=== PATIENT | female | born 1945 | race Caucasian/White ===

== ENCOUNTER 2017-06-22 11:29 | Observation (INO) | payer MEDICARE ==
[~2017-06-22] VITALS: Ht 165.1 cm; Wt 63.5 kg
--- NOTE | 2017-06-22 12:59 | Diagnostic Imaging Report ---
PROCEDURE:X-RAY CHEST, ONE VIEW COMPARISON:None. INDICATIONS:DIZZY, HEART FAILURE, SHORT OF BREATH FINDINGS: There are no consolidations, pleural effusions or pneumothorax. The cardiomediastinal silhouette and pulmonary vasculature are normal. There is a tortuous and calcified thoracic aorta. There are no acute osseous abnormalities. CONCLUSION: No acute cardiopulmonary abnormality. Evangelist Lew D.O. Dictated by: Evangelist Lew D.O. on 06/22/2017 at 12:59 Electronically approved by: Evangelist Lew D.O. on 06/22/2017 at 12:59
[2017-06-22 15:31] LABS: BASOPHILS % 0.4 % (0.0-1.0); EOSINOPHILS # (AUTO) 0.2 (0.0-0.4); HEMATOCRIT 34.9 % (34.2-44.1); HEMOGLOBIN 11.5 g/dL (12.0-16.0); LYMPHOCYTES # (AUTO) 2.6 (1.0-3.2); LYMPHOCYTES % 24.2 % (18.0-39.1); MEAN CORPUSCULAR HEMOGLOBIN 29.7 pg (28-32); MEAN CORPUSCULAR VOLUME 90.2 fL (81-99); MONOCYTES # (AUTO) 0.7 (0.2-0.8); MONOCYTES % 6.8 % (4.4-11.3); NEUTROPHILS # (AUTO) 7.1 (2.1-6.9); NEUTROPHILS % 66.2 % (38.7-80.0); PLATELET COUNT 280 x10e3/uL (140-360); RED BLOOD COUNT 3.87 x10e6/uL (3.6-5.1); RED CELL DISTRIBUTION WIDTH 12.8 % (11.7-14.4)
[2017-06-22 15:36] LABS: BILIRUBIN,URINE NEGATIVE (NEGATIVE); CLARITY,URINE CLEAR (CLEAR); COLOR,URINE YELLOW (YELLOW); KETONES,URINE NEGATIVE (NEGATIVE); LEUKOCYTE ESTERASE ,URINE NEGATIVE (NEGATIVE); NITRITE,URINE NEGATIVE (NEGATIVE); PROTEIN,URINE DIPSTICK NEGATIVE (NEGATIVE); URINE UROBILINOGEN 0.2 mg/dL (0.2 - 1)
[2017-06-22 15:39] LABS: INR 1.02; PROTHROMBIN TIME 12.6 seconds (11.9-14.5)
[2017-06-22 15:40] LABS: PARTIAL THROMBOPLASTIN TIME 31.2 seconds (23.8-35.5)
[2017-06-22 15:52] LABS: ALANINE AMINOTRANSFERASE 8 IU/L (0-55); ALBUMIN 3.6 g/dL (3.5-5.0); ALKALINE PHOSPHATASE 83 IU/L (40-150); ANION GAP 14.4 mmol/L (8-16); BLOOD UREA NITROGEN 11 mg/dL (7-26); BUN/CREATININE RATIO 14 (6-25); CALCIUM 9.5 mg/dL (8.4-10.2); CARBON DIOXIDE 25 mmol/L (22-29); CHLORIDE 104 mmol/L (98-107); CREATINE KINASE 25 IU/L (29-168); EST GLOMERULAR FILTRATION RATE > 60 ML/MIN (60-); GLUCOSE 109 mg/dL (74-118); POTASSIUM 3.4 mmol/L (3.5-5.1); SODIUM 140 mmol/L (136-145)
[2017-06-22] MEDS ORDERED: TEMAZEPAM15 MG PO ×2 (16:20→21:04)
[2017-06-22] MEDS ORDERED: ASPIR 8181 MG PO (16:20)
[2017-06-22] MEDS ORDERED: LOSARTAN POTAS100 MG PO (16:20)
[2017-06-22] MEDS ORDERED: HYDROCHLOROTHIA25 MG PO (16:20)
[2017-06-22] MEDS ORDERED: PERCOCET 10-321 EACH PO (16:20)
[2017-06-22] MEDS ORDERED: LYRICA75 MG PO (16:20)
[2017-06-22] MEDS ORDERED: AMLODIPINE BESYL5 MG PO (16:20)
[2017-06-22] MEDS ORDERED: ALBUTEROL/IPRATROPIUM 3 ML NEB NEB ONE (18:00)
--- NOTE | 2017-06-22 18:49 | Diagnostic Imaging Report ---
PROCEDURE: CT scan of the chest WITH intravenous contrast, using zac PE dard protocol. TECHNIQUE: The chest was scanned utilizing a multidetector helical scanner from the lung apex through the level of the adrenal glands after the IV administration of 62 cc of Isovue 370, with special concentration on the pulmonary arteries. Coronal and sagittal multiplanar reformations were obtained. COMPARISON: None. INDICATIONS: pe, sob for a few weeks FINDINGS: Lines/tubes: None. Lungs and Airways: No filling defects in the main, right or left pulmonary arteries to the segmental level to suggest pulmonary embolism. Very mild centrilobular emphysematous changes in the apices. 2 mm pulmonary nodule in the right upper lobe (series 3, image 23). 2 mm groundglass nodule in the left upper lobe (series 3, image 24). No other nodules. No masses or consolidation. Airways are clear, without endobronchial lesions. Pleura: No effusion, or pneumothorax. Heart and mediastinum: Thyroid is unremarkable. Heart size is normal. No pericardial effusion. Likely left ventricular hypertrophy. Extensive atherosclerotic calcification of the coronary arteries and to a lesser degree thoracic aortic arch. Aorta is non-aneurysmal. Main pulmonary artery is normal in caliber. Lymph nodes: No mediastinal, hilar, or axillary adenopathy. Abdomen: Limited contrast-enhanced views of the upper abdomen show no abnormality within the visualized liver, spleen, or kidneys. The adrenal glands are unremarkable. Thickening of the stomach antrum, pylorus, and visualized first portion of the duodenum, with mild surrounding fat stranding, which extends to the pancreatic head anteriorly. Normal enhancement of the visualized pancreas. A 1.7 cm air and fluid level containing structure between the pancreatic head and duodenum may represent a diverticulum. Bones: No acute bony abnormalities. Generalized osteopenia. Degenerative disc changes in the thoracic spine. IMPRESSION: 1. no CT evidence of pulmonary embolism. 2. 2 mm pulmonary nodules in the upper lobes. Consider followup low-dose nodule protocol noncontrast chest CT in 12 months given the likely high risk status. 3. Very mild bilateral centrilobular emphysematous changes in the apices. 4. The findings in the stomach antrum, pylorus, and visualized first portion of the duodenum is suggestive of gastritis/duodenitis. There is extension of the fat stranding to the pancreatic head anteriorly, which is likely reactive, however, pancreatitis is a consideration in the appropriate clinical setting. No evidence of pancreatic necrosis. Alirio Dykes M.D. Dictated by: Alirio Dykes M.D. on 06/22/2017 at 18:48 Electronically approved by: Alirio Dykes M.D. on 06/22/2017 at 18:48
[2017-06-22] MEDS ORDERED: KETOROLAC TROMETHAMINE 30 MG/ML VIAL IV STA (19:05)
[2017-06-22] MEDS ORDERED: ASPIRIN 81 MG CHEW TAB PO ONE (19:30)
--- OUTSIDE RECORDS SUMMARY | 2017-06-22 19:37 | XMS REPORT ---
Author Author [facility] Address Unknown Phone Unavailable Care Team Providers Care Watch Mechanic Name Role Phone LONG KIM Unavailable Unavailable Problems This patient has no known problems. Allergies, Adverse Reactions, Alerts This patient has no known allergies or adverse reactions. Medications This patient has no known medications. Results Test Description Test Time Test Comments Text Results Atomic Results Result Comments CT CHEST W [place] [address] Patient Name: ENRRIQUE HUSTON MR #: [id number] : 1945 Age/Sex: 72/F Req #: [id number] Adm Physician: Ordered by: LONG KIM MD Report #: [id number] Location: ER Room/Bed: Procedure: [id number] CT/CT CHEST W Exam Date: 06/22/17 Exam Time: 1815 REPORT STATUS: Signed PROCEDURE: CT scan of the chest WITH intravenous contrast, using zac maurice protocol. TECHNIQUE: The chest was scanned utilizing a multidetector helical scanner from the lung apex through the level of the adrenal glands after the IV administration of 62 cc of Isovue 370, with special concentration on the pulmonary arteries. Coronal and sagittal multiplanar reformations were obtained. COMPARISON: None. INDICATIONS: pe, sob for a few weeks FINDINGS: Lines/tubes: None. Lungs and Airways: No filling defects in the main, right or left pulmonary arteries to the segmental level to suggest pulmonary embolism. Very mild centrilobular emphysematous changes in the apices. 2 mm pulmonary nodule in the right upper lobe (series 3 , image 23). 2 mm groundglass nodule in the left upper lobe (series 3, image 24). No other nodules. No masses or consolidation. Airways are clear, without endobronchial lesions. Pleura: No effusion, or pneumothorax. Heart and mediastinum: Thyroid is unremarkable. Heart size is normal. No pericardial effusion. Likely left ventricular hypertrophy. Extensive atherosclerotic calcification of the coronary arteries and to a lesser degree thoracic aortic arch. Aorta is non-aneurysmal. Main pulmonary artery is normal in caliber. Lymph nodes: No mediastinal, hilar, or axillary adenopathy. Abdomen: Limited contrast-enhanced views of the upper abdomen show no abnormality within the visualized liver, spleen, or kidneys. The adrenal glands are unremarkable. Thickening of the stomach antrum, pylorus, and visualized first portion of the duodenum, with mild surrounding fat stranding, which extends to the pancreatic head anteriorly. Normal enhancement of the visualized pancreas. A 1.7 cm air and fluid level containing structure between the pancreatic head and duodenum may represent a diverticulum. Bones: No acute bony abnormalities. Generalized osteopenia. Degenerative disc changes in the thoracic spine. IMPRESSION : 1. no CT evidence of pulmonary embolism. 2. 2 mm pulmonary nodules in the upper lobes. Consider followup low-dose nodule protocol noncontrast chest CT in 12 months given the likely high risk status. 3. Very mild bilateral centrilobular emphysematous changes in the apices. 4. The findings in the stomach antrum, pylorus, and visualized first portion of the duodenum is suggestive of gastritis/duodenitis. There is extension of the fat stranding to the pancreatic head anteriorly, which is likely reactive, however, pancreatitis is a consideration in the appropriate clinical setting. No evidence of pancreatic necrosis. Yelitza Dykes M.D. Dictated by: Yelitza Dykes M.D. on 06/22/2017 at 18:48 Electronically approved by: Yelitza Dykes M.D. on 06/22/2017 at 18:48 Dictated By: YELITZA DYKES MD 47 Transcribed By: ROMEO on 06/22/171847 COPY TO: LONG KIM MD CHEST SINGLE (NOT PORTABLE) [place] [address] Patient Name: ENRRIQUE HUSTON MR #: [id number] : 1945 Age/Sex: 72/F Req #: [id number] Adm Physician: Ordered by: LONG KIM MD Report #: [id number] Location: ER Room/Bed: Procedure: [id number] DX/CHEST SINGLE (NOT PORTABLE) Exam Date: 06/22/17 Exam Time: 1240 REPORT STATUS: Signed PROCEDURE: X-RAY CHEST, ONE VIEW COMPARISON: None. INDICATIONS: DIZZY, HEART FAILURE, SHORT OF BREATH FINDINGS: There are no consolidations , pleural effusions or pneumothorax. The cardiomediastinal silhouette and pulmonary vasculature are normal. There is a tortuous and calcified thoracic aorta. There are no acute osseous abnormalities. CONCLUSION: No acute cardiopulmonary abnormality. Brandy Lew D.O. Dictated by : Brandy Lew D.O. on 06/22/2017 at 12:59 Electronically approved by: Brandy Lew D.O. on 06/22/2017 at 12:59 Dictated By: BRANDY LEW DO 58 Transcribed By: ROMEO on 06/22/171258 COPY TO: LONG KIM MD
[2017-06-22] MEDS ORDERED: IOPAMIDOL 370 MG/ML 200 ML INFUS..BTL INJ ONE (20:11)
[2017-06-22] MEDS ORDERED: SODIUM CHLORIDE 0.9% 50ML 50 ML ONE (20:11)
[2017-06-22] MEDS: MORPHINE SULFATE 2 MG/ML SYR IV PRN (20:20)
[2017-06-22] MEDS: ONDANSETRON HCL INJ 2 MG/ML VIAL IV PRN (20:20)
[2017-06-22 20:51] VITALS: BP 143/63
[2017-06-22 20:59] VITALS: BP 143/63
[2017-06-22] MEDS ORDERED: COLACE100 MG PO (21:05)
[2017-06-22] MEDS ORDERED: TEMAZEPAM 15 MG CAP PO PRN (21:15)
[2017-06-22 21:44] LABS: CREATINE KINASE MB 0.6 ng/mL (0-5.0)
[2017-06-23] VITALS: BP 123/56
[2017-06-23] MEDS: MORPHINE SULFATE 2 MG/ML SYR IV PRN ×3 (00:11→09:37)
[2017-06-23] MEDS: ONDANSETRON HCL INJ 2 MG/ML VIAL IV PRN ×2 (00:11→09:37)
[2017-06-23 04:00] VITALS: BP 162/73
[2017-06-23] MEDS ORDERED: DOCUSATE SODIUM 100 MG CAP PO PRN (06:30)
[2017-06-23 07:55] LABS: CREATINE KINASE MB 0.5 ng/mL (0-5.0)
[2017-06-23 08:00] VITALS: BP 172/83
[2017-06-23] MEDS ORDERED: ASPIRIN 325 MG TAB EC PO SCH (09:00)
[2017-06-23] MEDS ORDERED: HYDROCHLOROTHIAZIDE 25 MG TAB PO SCH (09:00)
[2017-06-23] MEDS ORDERED: PREGABALIN 75 MG CAP PO SCH (09:00)
[2017-06-23] MEDS ORDERED: AMLODIPINE BESYLATE 5 MG TAB PO SCH (09:00)
[2017-06-23] MEDS ORDERED: LOSARTAN POTASSIUM 100 MG TAB PO SCH (09:00)
[2017-06-23 10:00] VITALS: BP 159/65
[2017-06-23] MEDS ORDERED: NON-FORMULARY MEDICATION (Oxycodone Hcl/Acetaminophen (Percocet 10-325 Mg Tablet) 1 TAB) PO SCH (10:00)
[2017-06-23] MEDS ORDERED: OXYCODONE/ACETAMINOPHEN 5-325 1 EACH TABLET PO PRN (10:00)
[2017-06-23 12:00] VITALS: BP 156/65
[2017-06-23 12:57] LABS: CREATINE KINASE MB 0.6 ng/mL (0-5.0)
== END 2017-06-23 15:25 | disposition home or self-care (01) ==
LOC: ER 11:29 → ERHOLD 19:35 → MED/SURG 19:53
PROVIDERS: ADMIT Internal Medicine; ATTEND Internal Medicine
DX: R07.9 Chest pain, unspecified (principal); R06.00 Dyspnea, unspecified; I10 Essential (primary) hypertension; G89.29 Other chronic pain; Z87.891 Personal history of nicotine dependence
CPT/HCPCS: 36415 ×2; 71045; 71260; 80053; 80061; 81001; 82550 ×2; 82553 ×2; 83880; 84484 ×2; 85025; 85379; 85610; 85730; 93005; 93306; 94640; 99284; G0378 ×2; J1885; J2270 ×2; J2405 ×2; Q9967